=== PATIENT | female | born 1980 | race Native Hawaiian/Other Pacific Islander ===

== ENCOUNTER 2018-10-28 16:52 | Outpatient (CLI) | payer BC ==
[2018-10-28 17:18] LABS: PLATELET COUNT 264 K/uL (152-353)
[2018-10-28 17:46] LABS: POTASSIUM 3.7 mmol/L (3.6-5.2)
== END 2018-10-28 20:38 | disposition home or self-care (01) ==
LOC: LABW 16:52
PROVIDERS: Surgery Plastic and Reconstructive Surgery
DX: Z01.818 Encounter for other preprocedural examination (principal); Z79.899 Other long term (current) drug therapy; E03.9 Hypothyroidism, unspecified; D51.3 Other dietary vitamin B12 deficiency anemia; E55.9 Vitamin D deficiency, unspecified; Z86.39 Personal history of other endocrine, nutritional and metabolic disease
CPT/HCPCS: 36415; 80048; 82306; 82607; 83735; 84439; 84443; 84481; 84482; 84630; 85027